=== PATIENT | female | born 2000 | race African-American/Black ===

== ENCOUNTER 2024-08-22 09:47 | Inpatient (IN) ==
--- NOTE | 2024-08-22 10:38 | XRay Report ---
XR chest 1V portable CLINICAL HISTORY: Dyspnea COMPARISON STUDY: None FINDINGS: Heart size and pulmonary vasculature are normal. There is faint stranding and patchy opacit y at the right lung base. No pleural effusion or pneumothorax. IMPRESSION: Early pneumonia right lung base. ACT 112: Negative or not required by law. Electronically signed by: Curtis Farah M.D. 08/22/2024 10:37 AM
[2024-08-22 10:40] LABS: Hematocrit (blood only) 43.1 % (37.0-47.0); Hemoglobin 14.8 g/dl (12.0-16.0); Mean Corpuscular Hemoglobin 28.7 pg (25.0-34.0); Mean Corpuscular Hgb Conc 34.3 g/dL (32.0-36.0); Mean Corpuscular Volume 83.5 fL (80.0-100.0); Mean Platelet Volume 10.4 fL (9.4-12.4); Platelet Count 367 K/uL (130-400); RDW Coefficient of Variation 13.4 % (11.5-14.5); RDW Standard Deviation 41.6 fL (36.4-46.3); Red Blood Count 5.16 M/uL (4.20-5.40); White Blood Count 12.09 K/ul (4.8-10.8)
--- NOTE | 2024-08-22 10:50 | Emergency Department Note ---
Impression & Plan Mycoplasma pneumoniae pneumonia, RLL pneumonia, Hypoxia ED Provider Note NAME: DEVENDRA BENTLEY AGE: 23 SEX: F : 2000 ARRIVES VIA: Walk-In INFORMANT: Patient, ED PROVIDER(S): Gera Shi MD CHIEF COMPLAINT: Cough HPI: This is 23-year-old female presenting for cough and congestion. Patient states for the past 2 weeks she has noticed increasing symptoms. She initially went to an urgent care due to her symptoms of cough, congestion and a flulike illness. She was given Augmentin. She notes that her symptoms had not resolved she went back to the urgent care where they saw that her oxygen level was low and came here. She was 88% on room air at triage. She is tachycardic as well. She reports worsening cough with difficulty sleeping at night. ROS: See above HPI for pertinent positives & negatives. A total of 10 systems reviewed and were otherwise negative. PAST MEDICAL HISTORY: See Below PAST SURGICAL HISTORY: See Below FAMILY HISTORY: See Below SOCIAL HISTORY: See Below HOME MEDICATIONS: See Below ALLERGIES: See Below VITALS: See Below PHYSICAL EXAMINATION: General: resting comfortably in no acute distress Head: Normocephalic and atraumatic Eyes: Normal inspection, extraocular muscles intact Ear, nose, throat: Normal external exam Neck: Normal range of motion Respiratory: Rhonchi at the right lung base Cardiovascular: Regular rate/rhythm, no murmur GI: soft, nontender, no guarding or rebound Extremities: nontender, moves all extremities Neuro: The patient awake and alert, appropriately conversive, no focal deficits, symmetric faces Skin: Warm, dry, and intact MEDICAL DECISION MAKING: This is a 23-year-old female present with cough and congestion. Patient was sent here by urgent care for low oxygen levels and tachycardia. Patient is hypoxic requiring 3 L nasal cannula to maintain oxygen saturation above 95%. She has rhonchi in the right lung base. Concern for pneumonia currently. Will do x-ray and basic blood work. -Leukocytosis 12.09. -Chest x-ray independently interpreted by me as right lower lung opacity concerning for pneumonia without pneumothorax. -With the opacity on chest x-ray and will treat with ceftriaxone and azithromycin to cover community-acquired pneumonia as well as atypical coverage -Patient is positive for mycoplasma -Patient mated to hospital service, care discussed with Rick Castrejon PA-C for hospital service Differential diagnosis: Pneumonia, upper respiratory infection, PE Independent History obtained from: [facility] interpreted by me: ECG: ECG independently interpreted by me with sinus tachycardia, rate of 106, normal axis, normal OH, normal QRS, normal QTc, no ST segment elevations consistent with STEMI criteria Cardiac Monitoring: An order was placed for continuous cardiac monitoring. The monitor shows a rate of 105 with sinus rhythm. Past Med/Surg History Problem List (Updated 08/23/24 @ 09:22 by Gera Shi MD) Mycoplasma pneumoniae pneumonia (Acute) Hypoxia (Acute) Human metapneumovirus (hMPV) pneumonia RLL pneumonia (Acute) Social History Smoking Status: Never smoker Hx Alcohol Use: Yes Alcohol type: hard liquor Hx Substance Use: No Preferred Language: French Communication Ability: Effective Beliefs That Will Affect Care: None Current Living Situation: Other Current Living Situation Comment: [facility] apartment Feels Safe at Home: Yes Allergies Allergies Allergy/AdvReac Type Severity Reaction Status Date / Time No Known Allergies Allergy Verified 08/22/24 09:04 Home Meds Home Medications Medication Instructions Recorded Confirmed Elderberry 2 gummy PO DAILY 08/22/24 08/22/24 benzonatate 100 mg capsule 100 - 200 mg PO TID cough 08/22/24 08/22/24 Previous Rx's Medication Instructions Recorded amoxicillin 875 mg-potassium 1 tab PO BID 10 days #20 tabs 08/18/24 clavulanate 125 mg tablet Results & Data (ED) Vital Signs Vital Signs - 24 hr 08/22/24 09:50 08/22/24 10:04 08/22/24 10:37 Temperature 36.6 C Temperature Source Temporal Artery Scan Pulse Rate 122 H 110 H Pulse Rate [Apical] Respiratory Rate 22 Respiratory Effort / Characteristics Short of Breath Spontaneous Respiratory Depth Normal Respiratory Pattern Regular Blood Pressure 113/74 Blood Pressure [Left Arm] Blood Pressure Mean 87 Blood Pressure Mean [Left Arm] Pulse Oximetry 88 L Oxygen Delivery Method Room Air Oxygen Flow Rate Sepsis Recent Fever Within 48 Hours No Sepsis New/Unexplained Change in Mental Status N/A Sepsis Action Taken by Nursing No Action Required Oxygen Flow Rate - Titration Pulse Oximetry Post Tiitration 08/22/24 10:37 08/22/24 10:37 08/22/24 12:00 Temperature Temperature Source Pulse Rate Pulse Rate [Apical] 96 H Respiratory Rate 18 Respiratory Effort / Characteristics Non-Labored Spontaneous Respiratory Depth Normal Respiratory Pattern Regular Blood Pressure Blood Pressure [Left Arm] 109/79 Blood Pressure Mean Blood Pressure Mean [Left Arm] 89 Pulse Oximetry 96 98 Oxygen Delivery Method Room Air Nasal Cannula Nasal Cannula Nasal Cannula Oxygen Flow Rate 3 2 Sepsis Recent Fever Within 48 Hours Sepsis New/Unexplained Change in Mental Status Sepsis Action Taken by Nursing Oxygen Flow Rate - Titration 3 Pulse Oximetry Post Tiitration 96 Laboratory Data 08/22/24 10:26 08/22/24 10: Lab Results 08/22/24 Range/Units 10: WBC 12.09 H (4.8-10.8) K/ul RBC 5.16 (4.20-5.40) M/uL Hgb 14.8 (12.0-16.0) g/dl Hct 43.1 (37.0-47.0) % MCV 83.5 (80.0-100.0) fL MCH 28.7 (25.0-34.0) pg MCHC 34.3 (32.0-36.0) g/dL RDW Std Deviation 41.6 (36.4-46.3) fL RDW Coeff of Radha 13.4 (11.5-14.5) % Plt Count 367 (130-400) K/uL MPV 10.4 (9.4-12.4) fL Immature Gran % (Auto) 0.6 % Neut % (Auto) 80.2 % Lymph % (Auto) 10.4 % Shannon % (Auto) 7.7 % Eos % (Auto) 0.9 % Baso % (Auto) 0.2 % Neut # (Auto) 9.69 H (1.40-6.50) K/uL Lymph # (Auto) 1.26 (1.20-3.40) K/uL Shannon # (Auto) 0.93 H (0.11-0.59) K/uL Eos # (Auto) 0.11 (0.00-0.50) K/uL Baso # (Auto) 0.03 (0.00-0.20) K/uL Immature Gran # (Auto) 0.07 (0.01-0.20) K/uL D-Dimer 3670 H* (0-500) ug/L FEU Sodium 139 (136-145) mmol/L Potassium 4.1 (3.5-5.1) mmol/L Chloride 102 (98-107) mmol/L Carbon Dioxide 26 (21-32) mmol/L Anion Gap 11 (3-11) BUN 9 (6-23) mg/dl Creatinine 0.80 (0.6-1.2) mg/dl Est Cr Clr Drug Dosing 95.2 ml/min eGFR 107.44 BUN/Creatinine Ratio 11.3 (10-20) Glucose 98 (70-99(Fasting)) mg/dl Calcium 9.4 (8.6-10.3) mg/dl Total Bilirubin 0.8 (0.2-1.0) mg/dl AST 36 (13-39) U/L ALT 26 (7-52) U/L Alkaline Phosphatase 69 (34-104) U/L Troponin I High Sens < 2.3 (0-14) pg/ml Total Protein 8.1 (6.0-8.3) gm/dl Albumin 4.2 (3.4-5.0) gm/dl Globulin 3.9 (2.5-4.0) gm/dl Albumin/Globulin Ratio 1.1 (0.9-2) Procalcitonin 0.07 (0-0.5) ng/ml HCG, Qual Negative (Negative) Adenovirus (PCR) Not Detected (NotDetected) B. pertussis DNA (PCR) Not Detected (NotDetected) B.parapertussis DNA PCR Not Detected (NotDetected) C. pneumoniae DNA (PCR) Not Detected (NotDetected) Coronavirus OC43 (PCR) Not Detected (NotDetected) Coronavirus HKU1 (PCR) Not Detected (NotDetected) Coronavirus 229E (PCR) Not Detected (NotDetected) SARS-CoV-2 (PCR) Not Detected (NotDetected) Coronavirus NL63 (PCR) Not Detected (NotDetected) Human Metapneumovir PCR Not Detected (NotDetected) Influenza Type A (PCR) Not Detected (NotDetected) Influenza Type B (PCR) Not Detected (NotDetected) M. pneumoniae (PCR) DETECTED A (NotDetected) Parainfluenza 1 (PCR) Not Detected (NotDetected) Parainfluenza 2 (PCR) Not Detected (NotDetected) Parainfluenza 3 (PCR) Not Detected (NotDetected) Parainfluenza 4 (PCR) Not Detected (NotDetected) RSV (PCR) Not Detected (NotDetected) Entero/Rhino (PCR) Not Detected (NotDetected) Administered Medications Azithromycin (Azithromycin 250 Mg Tab) 500 mg PO QAM ANNALEE Stop: 08/28/24 08:59 Last Admin: 08/23/24 07:58 Dose: 500 mg Documented By: BCD Discontinued Medications Ceftriaxone Sodium (Rocephin) 2,000 mg in 50 mls @ 100 mls/hr IV NOW STA Stop: 08/22/24 11:15 Last Infusion: 08/22/24 11:21 Dose: Infused Documented By: Admin: 08/22/24 10:51 Dose: 100 mls/hr Documented By: XIOMY Azithromycin (Zithromax) 500 mg in 255 mls @ 127.5 mls/hr IV NOW ONE Stop: 08/22/24 12:45 Last Infusion: 08/22/24 13:50 Dose: Infused Documented By: Admin: 08/22/24 11:50 Dose: 127.5 mls/hr Documented By: XIOMY Ioversol (Optiray 320 125ml) 119 ml IV ONCE ONE Stop: 08/22/24 14:43 Last Admin: 08/22/24 14:43 Dose: 119 ml Documented By: EDK Imaging Data Radiologist's Impression: Chest X-Ray 08/22/24 10:13 XR chest 1V portable CLINICAL HISTORY: Dyspnea COMPARISON STUDY: None FINDINGS: Heart size and pulmonary vasculature are normal. There is faint stranding and patchy opacity at the right lung base. No pleural effusion or pneumothorax. IMPRESSION: Early pneumonia right lung base. ACT 112: Negative or not required by law. Electronically signed by: Curtis Farah M.D. 08/22/2024 10:37 AM Discharge Plan Visit Data Chief Complaint: Shortness of Breath/Dyspnea Stated Complaint: SOB, LOW OX, PNUEMONIA/COUGH, CRACKLING BREATH ED Provider: Gera Shi Discharge Problem: Mycoplasma pneumoniae pneumonia, RLL pneumonia, Hypoxia Patient Disposition: Admitted As Inpatient Discharge Instructions Interventions: ED Discharge Assessment Last Done: 08/22/24 14:24 Discharge Problem: Mycoplasma pneumoniae pneumonia Qualifiers: Laterality: right Lung location: lower lobe of lung Qualified Code(s): J15.7 - Pneumonia due to Mycoplasma pneumoniae RLL pneumonia Qualifiers: Pneumonia type: due to Mycoplasma pneumoniae Qualified Code(s): J15.7 - Pneumonia due to Mycoplasma pneumoniae
[2024-08-22] MEDS: cefTRIAXone SODIUM 2,000 MG/50 ML BAG IV STA (10:51)
[2024-08-22 10:56] LABS: Basophils # (auto) 0.03 K/uL (0.00-0.20); Basophils % (auto) 0.2 %; Eosinophils # (auto) 0.11 K/uL (0.00-0.50); Eosinophils % (auto) 0.9 %; Immature Granulocytes # (auto) 0.07 K/uL (0.01-0.20); Immature Granulocytes % (auto) 0.6 %; Lymphocytes # (auto) 1.26 K/uL (1.20-3.40); Lymphocytes % (auto) 10.4 %; Monocytes # (auto) 0.93 K/uL (0.11-0.59); Monocytes % (auto) 7.7 %; Neutrophils # (auto) 9.69 K/uL (1.40-6.50); Neutrophils % (auto) 80.2 %
[2024-08-22 11:10] LABS: Alanine Aminotransferase 26 U/L (7-52); Albumin Globulin Ratio 1.1 (0.9-2); Albumin Level 4.2 gm/dl (3.4-5.0); Alkaline Phosphatase 69 U/L (34-104); Anion Gap 11 (3-11); Aspartate Aminotransferase 36 U/L (13-39); BUN Creatinine Ratio 11.3 (10-20); Bilirubin,Total 0.8 mg/dl (0.2-1.0); Blood Urea Nitrogen 9 mg/dl (6-23); Calcium 9.4 mg/dl (8.6-10.3); Carbon Dioxide 26 mmol/L (21-32); Chloride 102 mmol/L (98-107); Creatinine Clr Calc Pharmacy 95.2 ml/min; Globulin 3.9 gm/dl (2.5-4.0); Glucose 98 mg/dl (70-99(Fasting)); Potassium 4.1 mmol/L (3.5-5.1); Sodium 139 mmol/L (136-145); Total Protein 8.1 gm/dl (6.0-8.3)
[2024-08-22 11:11] LABS: Troponin I High Sensitivity < 2.3 pg/ml (0-14)
--- NOTE | 2024-08-22 11:19 | Electrocardiogram Report ---
Test Reason : Blood Pressure : */* mmHG Vent. Rate : 106 BPM Atrial Rate : 106 BPM P-R Int : 140 ms QRS Dur : 72 ms QT Int : 324 ms P-R-T Axes : 80 78 68 degrees QTcB Int : 430 ms Sinus tachycardia Otherwise normal ECG No previous ECGs available Confirmed by Mina Dover ([id number]) on 08/22/2024 11:18:49 AM Referred By: REFERRED SELF Confirmed By: Mina Dover
[2024-08-22 11:41] LABS: Adenovirus PCR Not Detected (NotDetected); Bordetella parapertussis PCR Not Detected (NotDetected); Bordetella pertussis PCR Not Detected (NotDetected); Chlamydia pneumoniae PCR Not Detected (NotDetected); Coronavirus 229E PCR Not Detected (NotDetected); Coronavirus CoV-2 (COVID19)PCR Not Detected (NotDetected); Coronavirus HKU1 PCR Not Detected (NotDetected); Coronavirus NL63 PCR Not Detected (NotDetected); Coronavirus OC43PCR Not Detected (NotDetected); Human Metapneumovirus PCR Not Detected (NotDetected); Influenza A PCR Not Detected (NotDetected); Influenza B PCR Not Detected (NotDetected); Mycoplasma pneumoniae PCR DETECTED (NotDetected); Parainfluenza Virus 1 PCR Not Detected (NotDetected); Parainfluenza Virus 2 PCR Not Detected (NotDetected); Parainfluenza Virus 3 PCR Not Detected (NotDetected); Parainfluenza Virus 4 PCR Not Detected (NotDetected); Respiratory Syncytial VirusPCR Not Detected (NotDetected); Rhinovirus/Enterovirus PCR Not Detected (NotDetected)
[2024-08-22] MEDS: AZITHROMYCIN 500 MG/255 ML BAG IV ONE (11:50)
--- NOTE | 2024-08-22 12:10 | History & Physical Report ---
Date of Service August 22, 2024 Assessment & Plan (1) RLL pneumonia: (2) Human metapneumovirus (hMPV) pneumonia: (3) Hypoxia: Plan This is a 23-year-old female who presented on 08/22 for SOB/dyspnea. Failure of outpatient antibiotics (Augmentin Rx 08/18). #RLL pneumonia Leukocytosis of 12.09 in the setting of antibiotic use Procalcitonin negative CXR on arrival revealed patchy opacity in the right lower lung consistent with early pneumonia Ceftriaxone 2000 mg IV q24h Azithromycin 500 mg p.o. 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 Discussed risk factors for pulmonary embolism with patient: Patient denies smoking, oral contraceptives, PMHx of PE, or family history of clotting disorders However, patient does have history of sickle cell trait, and was on a plane ride to [place] for spring break recently (July 19-) just before her symptoms started Discussed with patient, and she is amenable to checking for PE D-dimer elevated; chest CTA negative for pulmonary embolism Titrate supplemental oxygen as needed to maintain SpO2 >94% Continuous pulse oximetry Disposition: Admit to [facility] telemetry VTE PPx: Lovenox 40mg SQ q24h History of Present Illness Chief Complaint: SOB/dyspnea [facility] is a 23-year-old female without significant PMH. She presented on 08/22 for SOB/dyspnea. Patient reports she has been sick with flulike symptoms for 2 weeks (fevers, productive cough, congestion). She went to an urgent care on Friday 08/18 and was prescribed an Augmentin. Despite taking this, she reports her symptoms progressively worsened. None today, she developed WHEELER. She had difficulty catching her breath when walking. She went back to the urgent care, and was sent to the emergency department for hypoxia. Patient reports that she does not have pain with deep breaths or hemoptysis. No supplemental oxygen at baseline or CPAP at night. Patient does not have a history of DVT/PE. No family history of DVT/PE to her knowledge. No personal or family history of clotting disorders. She does have a history of sickle cell trait. She denies smoking. No oral contraceptive use. Patient denies chance of ; LMP 2 weeks ago. Patient does not take medicine on daily basis. Patient denies recent alcohol use. NKDA. No allergies to antibiotics. Patient is a senior at [employer]. She does endorse recent travel; plane to [place] for springJuly 19. Patient is tachycardic around 100 bpm at time admission; SpO2 98% on 2L NC. 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 Patient denies chills, night-sweats, dizziness, chest pain, chest palpitations, SOB at rest, pleuritic CP, hemoptysis, abdominal pain, N/V, burning with urination, blood in the urine/stool, or redness/swelling in the legs. Allergies Allergy/AdvReac Type Severity Reaction Status Date / Time No Known Allergies Allergy Verified 08/22/24 09:04 Home Medications Medication Instructions Recorded Confirmed Type amoxicillin 875 mg-potassium 1 tab PO BID 10 days #20 tabs 08/18/24 08/22/24 Rx clavulanate 125 mg tablet Elderberry 2 gummy PO DAILY 08/22/24 08/22/24 History benzonatate 100 mg capsule 100 - 200 mg PO TID cough 08/22/24 08/22/24 History Past Med/Surg History Problem List (Updated 08/22/24 @ 13:06 by Rick Castrejon PA-C) Hypoxia Human metapneumovirus (hMPV) pneumonia RLL pneumonia Social History Smoking Status: Never smoker Preferred Language: Urdu Feels Safe at Home: Yes Review of Systems Review of Systems: See HPI above Physical Exam Physical Exam: General: no acute distress; anxious; brother at bedside; non-toxic appearing; cooperative; SpO2 98% on 2L NC HEENT: normocephalic, atraumatic; no scleral icterus; PERRLA w/ EOMs intact; vision and hearing grossly intact Neck: supple; no lymphadenopathy; trachea midline Skin: warm, dry without signs of tenting; no cyanosis; no rashes, bruising, lesions, or erythema noted CV: chest wall NTP; RR, tachycardic around 105 bpm; S1/S2 normal; no murmurs/rubs/gallops; pulses intact and symmetric at radial, DP, and PT Lungs: no acute respiratory distress; symmetrical chest wall expansion; clear breath sounds across all lung tristan w/o adventitious sounds; no wheezing ABD: Soft, NTP; BS present; no rebound/guarding; no distention MSK: no tics or fasciculations; no edema noted in the LEs b/l, nonerythematous Neuro: A&Ox3; normal mood and affect; fluent speech; no focal deficits; sensation intact and symmetric in the lower extremities bilaterally Trialed patient off of oxygen in bed, which dropped down to 93% on RA with minimal exertion Results & Data Results & Data Vital Signs (Past 12 Hours) Vital Signs Temp Pulse Pulse Resp BP BP Pulse Ox 08/22/24 12:00 96 H 18 109/79 98 08/22/24 10:37 96 08/22/24 10:37 08/22/24 10:04 110 H 08/22/24 09:50 36.6 C 122 H 22 113/74 88 L O2 Del Method O2 Flow Rate 08/22/24 12:00 Nasal Cannula 2 08/22/24 10:37 Nasal Cannula 3 08/22/24 10:37 Room Air, Nasal Cannula 08/22/24 10:04 08/22/24 09:50 Room Air Laboratory Results Abnormal lab results 08/22/24 Range/Units 10:26 WBC 12.09 H (4.8-10.8) K/ul Neut # (Auto) 9.69 H (1.40-6.50) K/uL [place] # (Auto) 0.93 H (0.11-0.59) K/uL M. pneumoniae (PCR) DETECTED A (NotDetected) Diagnostic Findings Chest X-Ray 08/22/24 10:13 XR chest 1V portable CLINICAL HISTORY: Dyspnea COMPARISON STUDY: None FINDINGS: Heart size and pulmonary vasculature are normal. There is faint stranding and patchy opacity at the right lung base. No pleural effusion or pneumothorax. IMPRESSION: Early pneumonia right lung base. ACT 112: Negative or not required by law. Electronically signed by: Curtis Farah M.D. 08/22/2024 10:37 AM ECG Additional Comments: ECG revealed sinus tachycardia at 106 bpm; QTc 430 Code Status & VTE Plan Code Status Full code VTE Prophylaxis Plan VTE Prophylaxis will be ordered: Yes PG Care Time/CCT Total # of Minutes Spent Total Time Spent with Patient: Total time spent is greater than 50% in coordination of care (as documented) at patient's floor/unit and/or counseling patient: Coding [place] [address] INT INP/OBS CARE 3/75MIN Patient Type Established History Comprehensive Exam Comprehensive Medical Decision Making High Complexity Diagnoses RLL pneumonia J18.9 Human metapneumovirus (hMPV) pneumonia J12.3 Hypoxia R09.02
[2024-08-22 13:43] LABS: D Dimer 3670 ug/L FEU (0-500)
[2024-08-22 13:56] LABS: Pregnancy Test, Serum Negative (Negative)
[2024-08-22] MEDS: OPTIRAY 320 125ml IV ONE (14:43)
--- NOTE | 2024-08-22 14:53 | CT Scan Report ---
CT angio chest PE protocol CT DOSE: 271.09 mGy.cm HISTORY: PE. TECHNIQUE: Multiple CTA images of the chest were obtained after the intravenous administration of 120 ml Optiray. Coronal and sagittal MIPS were obtained from the axial data set and were submitted for review. All measurements were obtained according to NASCET criteria. A dose lowering technique was u tilized adhering to the principles of ALARA. COMPARISON STUDY: Chest x-ray earlier today FINDINGS: There are scattered reticular opacities and patchy areas of consolidation throughout the ri ght lung, and at the left lower lobe, most prominent at the right middle and right lower lobes. There is no pleural effusion or pneumothorax. No enlarged adenopathy. No pericardial effusion. No thoracic aortic dissection or aneurysm. No pulmonary embolism. No acute osseous findings. IMPRESSION: 1. No pulmonary embolism seen. 2. Bilateral pneumonia, right greater than left. ACT 112: Negative or not required by law. The above report was generated using voice recognition software. It may contain grammatical, syntax o r spelling errors. Electronically signed by: Curtis Farah M.D. 08/22/2024 2:52 PM
[2024-08-22] MEDS ORDERED: BENZONATATE 100 MG CAPSULE PO PRN (15:02)
[2024-08-22] MEDS ORDERED: ACETAMINOPHEN 325 MG TAB PO PRN (15:02)
[2024-08-22] MEDS ORDERED: ENOXAPARIN INJ 40 MG/0.4 ML SYR SQ SCH (21:00)
--- NOTE | 2024-08-23 07:56 | Hospitalist Progress Note ---
Date of Service August 23, 2024 Assessment & Plan (1) RLL pneumonia: (2) Hypoxia: (3) Mycoplasma pneumoniae pneumonia: Plan This is a 23-year-old female who presented on 08/22 for SOB/dyspnea. Failure of outpatient antibiotics (Augmentin Rx 08/18). #RLL pneumonia Leukocytosis of 12.09 in the setting of antibiotic use Procalcitonin negative CXR on arrival revealed patchy opacity in the right lower lung consistent with early pneumonia Ceftriaxone 2000 mg IV q24h Azithromycin 500 mg p.o. q24h; QTc okay at 430 #Mycoplasma pneumonia Isolation precautions cont azithromycin Benzonatate TID for cough IS, flutter valve DuoNeb PRN #Hypoxia Thought secondary to pneumonia + mycoplasma SpO2 88% on RA on arrival While patient's symptoms have been going on x 2 weeks [employer], trouble breathing started 1 day [employer] Discussed risk factors for pulmonary embolism with patient: Patient denies smoking, oral contraceptives, PMHx of PE, or family history of clotting disorders However, patient does have history of sickle cell trait, and was on a plane ride to [place] for spring break recently (July 19-) just before her symptoms started Discussed with patient, and she is amenable to checking for PE D-dimer elevated; chest CTA negative for pulmonary embolism Titrate supplemental oxygen as needed to maintain SpO2 >94% Continuous pulse oximetry VTE PPx: Lovenox 40mg SQ q24h Dispo: d/c tentatively planned for 08/24/24 Admission and Anticipated Discharge Date Admission Date: August 22, 2024 Subjective no acute events feeling better Review of Systems Review of Systems: comprehensive ROS neg Physical Exam Physical Exam: Gen: NAD, in bed comfortable HEENT: NC/AT, MMM, anicteric CVS: s1s2nl, RRR Lungs: coarse breath sounds at the bases Abd: nl bowel sounds, soft, NT : no casper Ext: no edema Neuro: AAOx3 Psych: calm / cooperative Results & Data Results & Data Vital Signs (Past 12 Hours) Vital Signs Temp Pulse Pulse Resp BP Pulse Ox O2 Del Method 08/23/24 07:31 76 08/23/24 07:17 Room Air 08/23/24 03:09 36.5 C 76 18 99/66 L 92 Room Air 08/22/24 22:49 37.1 C 81 16 100/64 92 Room Air 08/22/24 21:51 91 H PG Care Time/CCT Total # of Minutes Spent Total Time Spent with Patient: Total time spent is greater than 50% in coordination of care (as documented) at patient's floor/unit and/or counseling patient: Coding Level of Care Code 30242 SUB INP/OBS CARE 2/35MIN Diagnoses RLL pneumonia J18.9 Hypoxia R09.02 Mycoplasma pneumoniae pneumonia J15.7 Laterality: right Lung location: lower lobe of lung (3) Mycoplasma pneumoniae pneumonia Laterality: right Lung location: lower lobe of lung Qualified Code(s): J15.7 - Pneumonia due to Mycoplasma pneumoniae
[2024-08-23] MEDS: AZITHROMYCIN 250 MG TAB PO SCH (07:58)
[2024-08-23] MEDS: cefTRIAXone SODIUM 2,000 MG/50 ML BAG IV SCH (10:10)
[2024-08-23 19:46] VITALS: RESP 16
[2024-08-24 07:44] LABS: BUN Creatinine Ratio 9.9 (10-20); Calcium 9.1 mg/dl (8.6-10.3); Creatinine Clr Calc Pharmacy 108.8 ml/min; Phosphorus 4.4 mg/dl (2.5-4.9); Potassium 4.6 mmol/L (3.5-5.1)
[2024-08-24 07:47] LABS: Hematocrit (blood only) 39.5 % (37.0-47.0); Hemoglobin 13.2 g/dl (12.0-16.0); Mean Corpuscular Hemoglobin 28.4 pg (25.0-34.0); Mean Corpuscular Hgb Conc 33.4 g/dL (32.0-36.0); Mean Corpuscular Volume 84.9 fL (80.0-100.0); Mean Platelet Volume 10.3 fL (9.4-12.4); Platelet Count 404 K/uL (130-400); RDW Coefficient of Variation 13.6 % (11.5-14.5); RDW Standard Deviation 42.2 fL (36.4-46.3); Red Blood Count 4.65 M/uL (4.20-5.40); White Blood Count 6.06 K/ul (4.8-10.8)
[2024-08-24 07:55] VITALS: BP 97/66; PULSE 77; TEMP 98.1; O2SAT 94
[2024-08-24 08:09] LABS: Basophils # (auto) 0.03 K/uL (0.00-0.20); Basophils % (auto) 0.5 %; Eosinophils # (auto) 0.17 K/uL (0.00-0.50); Eosinophils % (auto) 2.8 %; Immature Granulocytes # (auto) 0.11 K/uL (0.01-0.20); Immature Granulocytes % (auto) 1.8 %; Lymphocytes # (auto) 1.67 K/uL (1.20-3.40); Lymphocytes % (auto) 27.6 %; Monocytes # (auto) 0.66 K/uL (0.11-0.59); Monocytes % (auto) 10.9 %; Neutrophils # (auto) 3.42 K/uL (1.40-6.50); Neutrophils % (auto) 56.4 %
--- NOTE | 2024-08-24 11:13 | Discharge Summary ---
Discharge Summary Date of Service August 24, 2024 Principal Dx & Hospital Course #1 = Principal Diagnosis (1) RLL pneumonia: (2) Hypoxia: (3) Mycoplasma pneumoniae pneumonia: Plan This is a 23-year-old female who presented on 08/22 for SOB/dyspnea. Failure of outpatient antibiotics (Augmentin Rx 08/18). #RLL pneumonia Leukocytosis of 12.09 in the setting of antibiotic use Procalcitonin negative CXR on arrival revealed patchy opacity in the right lower lung consistent with early pneumonia CTA neg for PE d/c on Cefpodoxime (total 7 day course) and azithromycin (total 5 day course) guaifenesin, zyrtec, tessalon perles prn #Mycoplasma pneumonia cont abx Benzonatate TID for cough IS, flutter valve DuoNeb PRN #Hypoxia - resolved Thought secondary to pneumonia + mycoplasma SpO2 88% on RA on arrival Currently saturating well on RA Admission HPI Per Admitting Provider Margareth is a 23-year-old female without significant PMH. She presented on 08/22 for SOB/dyspnea. Patient reports she has been sick with flulike symptoms for 2 weeks (fevers, productive cough, congestion). She went to an urgent care on Friday 08/18 and was prescribed an Augmentin. Despite taking this, she reports her symptoms progressively worsened. None today, she developed WHEELER. She had difficulty catching her breath when walking. She went back to the urgent care, and was sent to the emergency department for hypoxia. Patient reports that she does not have pain with deep breaths or hemoptysis. No supplemental oxygen at baseline or CPAP at night. Patient does not have a history of DVT/PE. No family history of DVT/PE to her knowledge. No personal or family history of clotting disorders. She does have a history of sickle cell trait. She denies smoking. No oral contraceptive use. Patient denies chance of ; LMP 2 weeks ago. Patient does not take medicine on daily basis. Patient denies recent alcohol use. NKDA. No allergies to antibiotics. 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 She does endorse recent travel; plane to [place] for spring break July 19 -. Patient is tachycardic around 100 bpm at time admission; SpO2 98% on 2L NC. ED course: Azithromycin 500 mg IV Ceftriaxone 2000 mg IV ROS: Patient endorses fevers (resolved after 3 days; no fever 1 week [facility]NER), lightheadedness, WHEELER, productive cough (yellow sputum), nose bleeds, and diarrhea (improving). Patient denies chills, night-sweats, dizziness, chest pain, chest palpitations, SOB at rest, pleuritic CP, hemoptysis, abdominal pain, N/V, burning with urination, blood in the urine/stool, or redness/swelling in the legs. Discharge Exam Gen: NAD, in bed comfortable HEENT: NC/AT, MMM, anicteric CVS: s1s2nl, RRR Lungs: coarse breath sounds at the bases Abd: nl bowel sounds, soft, NT : no casper Ext: no edema Neuro: AAOx3 Psych: calm / cooperative Discharge Plan Discharge Items Patient Disposition: Home - Self-Care Reason For Visit: SOB, LOW OX, PNUEMONIA/COUGH, CRACKLING BREATH Discharge Diagnosis: mycoplasma pna Activity: Resume your previous activity Non-emergency contact: Primary Care Provider Call non-emergency contact if: you have any medication questions and your symptoms worsen Follow-up/Referrals: [place] [Primary Care Provider] - Diet: Regular Addtl Attending Provider Instructions: follow up with your PCP in 7 to 10 days Repeat chest xray in 8 weeks Pending Studies at Discharge: No Stand-Alone Forms: [facility] Sm[facility] Cess[facility] Medications and DC Order Prescriptions: New azithromycin 250 mg Tablet 500 mg PO QAM 2 Days Qty: 4 0RF cefpodoxime 200 mg tablet 200 mg PO BID 4 Days Qty: 8 0RF Rx Instructions: must administer with a meal/food guaifenesin 600 mg tablet extended release 12hr 600 mg PO BID PRN (Reason: cough) Qty: 30 0RF Zyrtec 10 mg capsule 10 mg PO DAILY PRN (Reason: allergy symptoms) Qty: 30 0RF Continued Elderberry 2 gummy PO DAILY benzonatate 100 mg capsule 100 - 200 mg PO TID Rx Instructions: take one to two tablets three times a day for cough (may make you sleepy) Discontinued amoxicillin-pot clavulanate 875-125 mg tablet 1 tab PO BID 10 Days Qty: 20 0RF Discharge Orders: Discharge Order (Routine); Ordered 08/24/24 Ordered By: Chloe Youngblood Admission Data Admit Date/Time: 08/22/24 13:15 Attending Provider: Chloe Youngblood Admit Provider: Michele Powers Primary Care Provider: [facility] Other Providers: Michele Powers Hospital Stay Data Consultations 08/22/24 12:17 ED Decision to Admit Stat Diagnostic Imagining Performed 08/22/24 13:40 CT angio chest PE protocol Stat Discharge Instructions Given to Patient (Per Discharging Provider) follow up with your PCP in 7 to 10 days Repeat chest xray in 8 weeks Total Time Total Time Spent Total Time Spent (In Minutes): 45 Coding Level of Care Code 95539 INP/OBS DISCH >30 MIN Diagnoses RLL pneumonia J15.7 Pneumonia type: due to Mycoplasma pneumoniae Hypoxia R09.02 Mycoplasma pneumoniae pneumonia J15.7 Laterality: right Lung location: lower lobe of lung
== END 2024-08-24 12:06 | disposition home or self-care (01) | DRG 195 ==
LOC: ED 09:47 → 2N 13:15 → SUATTDRO 13:15 → 2N 14:24